=== PATIENT | female | born 1990 | race Hispanic/Latino ===

== ENCOUNTER 2018-01-01 11:30 | Emergency (ER) | payer BC ==
[2018-01-01 12:56] VITALS: BMI 31.6
[2018-01-01] MEDS ORDERED: Betamethasone Soluspan 30 mg/5mL Inj Susp IM ONE (14:30)
[2018-01-01 20:22] VITALS: BP 76/49; PULSE 87; RESP 18; TEMP 98.5; O2SAT 99
== END 2018-01-01 16:00 | disposition home or self-care (01) ==
LOC: H.EROB2 11:30
DX: O41.03X0 Oligohydramnios, third trimester, not applicable or unspecified (principal); Z3A.28 28 weeks gestation of pregnancy; Z87.59 Personal history of other complications of pregnancy, childbirth and the puerperium; Z23 Encounter for immunization
CPT/HCPCS: 96372; 99283; J0702

== ENCOUNTER 2018-01-02 14:50 | Emergency (ER) | payer BC ==
[2018-01-01 12:56] VITALS: BMI 31.6
[2018-01-02] MEDS ORDERED: Betamethasone Soluspan 30 mg/5mL Inj Susp IM ONE (15:08)
[2018-01-02 16:07] LABS: BASO % 0.1 % (0.0-2.0); EOS % 0.1 % (0.0-4.0); HEMOGLOBIN 10.3 g/dL (12.0-16.0); LYMPH # 1.7 K/uL (1.0-4.3); LYMPH % 9.9 % (20.0-40.0); MEAN CORPUSCULAR HEMOGLOBIN 29.7 pg (27.0-31.0); MEAN PLATELET VOLUME 8.4 fl (7.2-11.7); MONO # 1.2 K/uL (0.0-0.8); MONO % 7.3 % (0.0-10.0); NEUT # 13.8 K/uL (1.8-7.0); NEUT % 82.6 % (50.0-75.0); PLATELET COUNT 193 K/uL (130-400); RBC 3.47 Mil/uL (3.80-5.20); RED CELL DISTRIBUTION WIDTH 13.2 % (11.5-14.5); WHITE BLOOD COUNT 16.7 K/uL (4.8-10.8)
[2018-01-02 16:45] LABS: ALB/GLOB RATIO 1.2 (1.0-2.1); ALBUMIN 3.6 g/dL (3.5-5.0); ALT/SGPT 36 U/L (9-52); AST/SGOT 25 U/L (14-36); BLOOD UREA NITROGEN 9 mg/dl (7-17); CALCIUM 9.1 mg/dL (8.4-10.2); GFR AFRICAN-AMERICAN > 60; GFR NON-AFRICAN AMERICAN > 60
[2018-01-02 16:52] LABS: PARTIAL THROMBOPLASTIN TIME 23.9 Seconds (25.6-37.1); PROTHROMBIN TIME 10.5 Seconds (9.8-13.1)
[2018-01-02 18:16] LABS: ANISOCYTOSIS SLIGHT; BANDS 3 % (0-2); HYPOCHROMIC SLIGHT; LYMPHOCYTE 9 % (20-50); MONOCYTE 8 % (0-10); NEUTROPHIL 80 % (42-75); PLATELET ESTIMATE NORMAL (NORMAL); TOTAL CELLS COUNTED 100
[2018-01-02 22:11] VITALS: BP 119/65; PULSE 97; RESP 18; TEMP 99.2
== END 2018-01-02 18:00 | disposition home or self-care (01) ==
LOC: H.EROB2 14:50
DX: O41.03X0 Oligohydramnios, third trimester, not applicable or unspecified (principal); O41.93X0 Disorder of amniotic fluid and membranes, unspecified, third trimester, not applicable or unspecified; Z3A.28 28 weeks gestation of pregnancy; Z23 Encounter for immunization
CPT/HCPCS: 80053; 83615; 84550; 85025; 85384; 85610; 85730; 96372; 99281; J0702